=== PATIENT | female | born 1985 | race Caucasian/White ===

== ENCOUNTER 2017-02-15 23:43 | Emergency (ER) | payer MEDICAID, OTHER ==
[~2017-02-15] VITALS: Ht 167.6 cm; Wt 55.8 kg
[2017-02-15] MEDS ORDERED: BIRTH CONTROL PILLS (23:52)
[2017-02-16 00:25] LABS: APPEARANCE,URINE CLEAR; KETONES,URINE 2+ (NEGATIVE); LEUKOCYTE ESTERASE ,URINE 1+ (NEGATIVE); NITRITE,URINE NEGATIVE (NEGATIVE); PH,URINE 6.5 (4.5-8.0); PROTEIN,URINE 1+ (NEGATIVE); UROBILINOGEN,URINE NORMAL MG/DL (0.0-1.0)
[2017-02-16 00:31] LABS: RBC,URINE 40-60 /HPF (0 - 2); WBC,URINE 0-2 /HPF (0 - 2)
[2017-02-16 00:32] LABS: BACTERIA,URINE FEW /HPF; SQUAMOUS EPITHELIAL CELL,UR MANY /LPF (NONE/OCC)
[2017-02-16 01:01] VITALS: BP 115/68
[2017-02-16] MEDS ORDERED: ACETAMINOPHEN-1 EAC1 ORAL (01:02)
[2017-02-16] MEDS ORDERED: IBUPROFEN600 MG ORAL (01:02)
[2017-02-16] MEDS: Norco 10mg/325mg tab ORAL ONE (01:07)
[2017-02-16 01:28] VITALS: BP 115/68
--- NOTE | 2017-02-16 03:49 | Emergency Room Report ---
History of Present Illness General Chief Complaint: Female Urogenital Problems Source: Patient Present Illness HPI Patient presents with complaints of burning in her vaginal region Patient reports that for the past several days she's had increased pain She had taken a Monistat which she felt worsened her burning sensation Patient denies any lower abdominal pain Denies any trauma denies any chest pain or shortness of breath Patient is finishing her menstrual cycle at this time Describes the pain as a sharp stabbing type pain, burning sensation Allergies: Coded Allergies: AMOXICILLIN (Verified Allergy, Unknown, 02/15/17) Patient History Past Medical History: see triage record Pertinent Family History: none Last Menstrual Period: 1 wk ago Reviewed Nursing Documentation: PMH: Agreed, PSxH: Agreed Nursing Documentation-PMH Past Medical History: No Stated History Review of Systems All Other Systems: negative except mentioned in HPI Physical Exam Vital Signs Date Time Temp Pulse Resp B/P (MAP) Pulse Ox O2 Delivery O2 Flow Rate FiO2 02/15/17 23:47 98.1 8 16 117/74 98 Room Air Sp02 EP Interpretation: reviewed, normal General Appearance: well appearing, no apparent distress Head: normocephalic, atraumatic Eyes: bilateral eye PERRL, bilateral eye EOMI ENT: hearing grossly normal, normal pharynx, TMs + canals normal, uvula midline Neck: full range of motion, supple, no meningismus, no bony tend Respiratory: lungs clear, normal breath sounds, no rhonchi, no respiratory distress, no retraction, no accessory muscle use Cardiovascular #1: normal peripheral pulses, regular rate, rhythm, no edema, no gallop, no JVD, no murmur Gastrointestinal: normal bowel sounds, non tender, soft, no mass, no organomegaly, non-distended, no guarding, no hernia, no pulsatile mass, no rebound Genitourinary: no CVA tenderness, other - Pelvic exam reveals patient is on her menstrual cycle, the os was closed and there is no signs of any foreign body in the cul-de-sac, I did not visualize any obvious large lacerations or active hemorrhage Musculoskeletal: normal inspection Neurologic: oriented x3, responsive, legal billing specialist III-XII nml as tested, motor strength/ tone normal, sensory intact Psychiatric: mood/affect normal Skin: normal color, no rash, warm/dry, palpation normal Lymphatic: normal inspection, no adenopathy Medical Decision Making Diagnostic Impression: Primary Impression: vaginal pain ER Course Patient's description of the discomfort sounds to be in line with possible small laceration or other acute injury Patient does not have any fevers There is no signs of any infectious pathology Unfortunately the patient is on her menstrual cycle making the evaluation of any small lacerations very difficult Patient did do better at this time with acute intervention I do not feel CT imaging will provide further input at this time Patient is instructed for no sexual activity And followup closely with gynecology Labs Test 02/16/17 00:08 Urine Color Pale yellow Urine Appearance Clear Urine pH 6.5 (4.5-8.0) Urine Specific [place] 1.005 (1.005-1.035) Urine Protein 1+ (NEGATIVE) Urine Glucose (UA) Negative (NEGATIVE) Urine Ketones 2+ (NEGATIVE) Urine Occult Blood 3+ (NEGATIVE) Urine Nitrite Negative (NEGATIVE) Urine Bilirubin Negative (NEGATIVE) Urine Urobilinogen Normal MG/DL (0.0-1.0) Urine Leukocyte Esterase 1+ (NEGATIVE) Urine RBC 40-60 /HPF (0 - 2) Urine WBC 0-2 /HPF (0 - 2) Urine Squamous Epithelial Cells Many /LPF (NONE/OCC) Urine Bacteria Few /HPF (NONE) Urine HCG, Qualitative Negative Last Vital Signs Date Time Temp Pulse Resp B/P (MAP) Pulse Ox O2 Delivery O2 Flow Rate FiO2 02/16/17 01:28 91 14 115/68 99 Room Air 02/16/17 01:01 98.1 Status: improved Disposition: HOME, SELF-CARE Condition: Stable Scripts Acetaminophen With Codeine (T#3) (TYLENOL #3 TAB*) Y Tab 1 TAB ORAL Q8H Y for For Pain, #10 TAB Prov: SUSIE LEIGH.OJuan 02/16/17 Ibuprofen* (MOTRIN*) 600 Mg Tablet 600 MG ORAL Q8H Y for For Pain, #20 TAB 0 Refills Prov: SUSIE LEIGH D.O. 02/16/17 Referrals: [facility] (PCP) Patient Instructions: Vaginal Laceration Additional Instructions: Patient is provided with the discharge instructions notified to follow up with primary doctor in the next 2-3 days otherwise return to the er with any worsening symptoms. Please note that this report is being documented using [employer] technology. This can lead to erroneous entry secondary to incorrect interpretation by the dictating instrument. SUSIE LEIGH D.O. Feb 16, 2017 03:48
== END 2017-02-16 01:28 | disposition home or self-care (01) ==
LOC: EMR 23:59
DX: R10.2 Pelvic and perineal pain (principal)
CPT/HCPCS: 81003; 81025; 99283

== ENCOUNTER 2017-07-30 07:23 | Emergency (ER) | payer SELFPAY ==
[~2017-07-30] VITALS: Ht 167.6 cm; Wt 54.4 kg
[~2017-07-30 07:23] MED LIST: ACETAMINOPHEN-1 EAC1 ORAL; BIRTH CONTROL PILLS; IBUPROFEN600 MG ORAL
[2017-07-30 07:30] VITALS: BP 105/66
[2017-07-30] MEDS ORDERED: NKM (07:31)
--- NOTE | 2017-07-30 07:52 | Emergency Room Report ---
History of Present Illness General Chief Complaint: Vomiting Source: Patient Present Illness HPI 31-year-old female presents ED for evaluation of abdominal pain with nausea and vomiting. Started last night after eating popcorn with butter on it. Notes multiple episodes of vomiting since. Pain is cramping, epigastric, 8 out of 10 , nonradiating. Denies fevers or chills. Denies chest pain or shortness of breath. Denies any flank pain. Denies any diarrhea. No other aggravating relieving factors. Denies any other associated symptoms Allergies: Coded Allergies: AMOXICILLIN (Verified Allergy, Unknown, 02/15/17) Patient History Past Medical History: none Past Surgical History: none Pertinent Family History: none Social History: Denies: smoking, alcohol use, drug use Last Menstrual Period: 07/17/17 Now: No Immunizations: UTD Reviewed Nursing Documentation: PMH: Agreed; PSxH: Agreed Nursing Documentation-PMH Past Medical History: No Stated History Review of Systems All Other Systems: negative except mentioned in HPI Physical Exam Vital Signs Date Time Temp Pulse Resp B/P (MAP) Pulse Ox O2 Delivery O2 Flow Rate FiO2 07/30/17 07:28 98.4 113 18 105/66 97 Room Air 98.4 Sp02 EP Interpretation: reviewed, normal General Appearance: no apparent distress, alert, GCS 15, non-toxic Head: normocephalic, atraumatic Eyes: bilateral eye normal inspection, bilateral eye PERRL ENT: hearing grossly normal, normal pharynx, no angioedema, normal voice Neck: full range of motion, supple/symm/no masses Respiratory: chest non-tender, lungs clear, normal breath sounds, speaking full sentences Cardiovascular #1: regular rate, rhythm, no edema Cardiovascular #2: 2+ carotid (R), 2+ carotid (L), 2+ radial (R), 2+ radial (L) , 2+ dorsalis pedis (R), 2+ dorsalis pedis (L) Gastrointestinal: normal bowel sounds, soft, non-distended, no guarding, no rebound, tenderness - epigastric Rectal: deferred Genitourinary: normal inspection, no CVA tenderness Musculoskeletal: back normal, gait/station normal, normal range of motion, non- tender Neurologic: alert, oriented x3, responsive, motor strength/tone normal, sensory intact, speech normal Psychiatric: judgement/insight normal, memory normal, mood/affect normal, no suicidal/homicidal ideation Reflexes: 3+ bicep (R), 3+ bicep (L), 3+ tricep (R), 3+ tricep (L), 3+ knee (R) , 3+ knee (L) Skin: normal color, no rash, warm/dry, well hydrated Lymphatic: no adenopathy Medical Decision Making Diagnostic Impression: Primary Impression: Gastritis Qualified Codes: K29.00 - Acute gastritis without bleeding ER Course Hospital Course 31-year-old F presents to ED with epigastric pain with N/V. differential diagnosis: gastritis, SBO, cholecystits Clinical course Patient placed on stretcher. On ekg monitor tech. After initial history and physical I ordered labs, IV fluids, Zofran and pepcid Labs - noted leukocytosis, no electrolyte abnormalities, LFTs normal, UA unremarkable Abdomen is soft, no guarding or rebound. Suspicion for acute abdomen is low Upon reassessment, patient states pain has improved. findings consistent with gastritis I feel this is a highly complex case requiring extensive working including EKG/ Rhythm strip, Xray/CT/US, Blood/urine lab work, repeat exams while in ED, and administration of strong opiates/narcotics for pain control, admission to hospital or close patient follow up. Diagnosis - gastritis Stable and discharged to home with prescriptions for Zantac, zofran. Followup with PMD. Return to ED if symptoms recur or worsen Labs Test 07/30/17 07:45 07/30/17 08:17 White Blood Count 15.5 K/UL (4.8-10.8) Red Blood Count 4.69 M/UL (4.20-5.40) Hemoglobin 15.0 G/DL (12.0-16.0) Hematocrit 42.0 % (37.0-47.0) Mean Corpuscular Volume 90 FL (80-99) Mean Corpuscular Hemoglobin 31.9 PG (27.0-31.0) Mean Corpuscular Hemoglobin Concent 35.7 G/DL (32.0-36.0) Red Cell Distribution Width 10.1 % (11.6-14.8) Platelet Count 104 K/UL (150-450) Mean Platelet Volume 8.4 FL (6.5-10.1) Neutrophils (%) (Auto) % (45.0-75.0) Lymphocytes (%) (Auto) % (20.0-45.0) Monocytes (%) (Auto) % (1.0-10.0) Eosinophils (%) (Auto) % (0.0-3.0) Basophils (%) (Auto) % (0.0-2.0) Sodium Level 138 MMOL/L (136-145) Potassium Level 4.5 MMOL/L (3.5-5.1) Chloride Level 102 MMOL/L (98-107) Carbon Dioxide Level 26 MMOL/L (21-32) Anion Gap 10 mmol/L (5-15) Blood Urea Nitrogen 11 mg/dL (7-18) Creatinine 0.8 MG/DL (0.55-1.30) Estimat Glomerular Filtration Rate > 60 mL/min (>60) Glucose Level 107 MG/DL (74-106) Calcium Level 8.9 MG/DL (8.5-10.1) Total Bilirubin 1.0 MG/DL (0.2-1.0) Aspartate Amino Transf (AST/SGOT) 37 U/L (15-37) Alanine Aminotransferase (ALT/SGPT) 37 U/L (12-78) Alkaline Phosphatase 73 U/L (46-116) Total Protein 8.4 G/DL (6.4-8.2) Albumin 4.6 G/DL (3.4-5.0) Globulin 3.8 g/dL Albumin/Globulin Ratio 1.2 (1.0-2.7) Lipase 74 U/L (73-393) Urine Color Pale yellow Urine Appearance Clear Urine pH 7 (4.5-8.0) Urine Specific [place] 1.005 (1.005-1.035) Urine Protein Negative (NEGATIVE) Urine Glucose (UA) Negative (NEGATIVE) Urine Ketones 1+ (NEGATIVE) Urine Occult Blood 2+ (NEGATIVE) Urine Nitrite Negative (NEGATIVE) Urine Bilirubin Negative (NEGATIVE) Urine Urobilinogen Normal MG/DL (0.0-1.0) Urine Leukocyte Esterase Negative (NEGATIVE) Urine RBC 2-4 /HPF (0 - 2) Urine WBC 0-2 /HPF (0 - 2) Urine Squamous Epithelial Cells Moderate /LPF (NONE/OCC) Urine Bacteria Few /HPF (NONE) Urine HCG, Qualitative Negative (NEGATIVE) Last Vital Signs Date Time Temp Pulse Resp B/P (MAP) Pulse Ox O2 Delivery O2 Flow Rate FiO2 07/30/17 07:28 98.4 113 18 105/66 97 Room Air 98.4 Status: improved Disposition: HOME, SELF-CARE Condition: Stable Scripts Ranitidine Hcl* (ZANTAC*) 150 Mg Tablet 150 MG ORAL TWICE A DAY, #30 TAB Prov: Antonio Mcdaniel MD 07/30/17 Ondansetron Odt* (ZOFRAN ODT*) 4 Mg Tab.rapdis 4 MG BC EVERY 6 HOURS PRN for Nausea & Vomiting, #30 TAB 0 Refills Prov: Antonio Mcdaniel MD 07/30/17 Antonio Mcdaniel MD July 30, 2017 07:52
[2017-07-30 08:08] LABS: MEAN CORPUSCULAR VOLUME 90 FL (80-99); PLATELET COUNT 104 K/UL (150-450); RED BLOOD COUNT 4.69 M/UL (4.20-5.40); RED CELL DISTRIBUTION WIDTH 10.1 % (11.6-14.8); WHITE BLOOD COUNT 15.5 K/UL (4.8-10.8)
[2017-07-30 08:13] LABS: ANION GAP 10 mmol/L (5-15); BLOOD UREA NITROGEN 11 mg/dL (7-18); CALCIUM 8.9 MG/DL (8.5-10.1); CARBON DIOXIDE 26 MMOL/L (21-32); CHLORIDE 102 MMOL/L (98-107); CREATININE 0.8 MG/DL (0.55-1.30); POTASSIUM 4.5 MMOL/L (3.5-5.1); SODIUM 138 MMOL/L (136-145)
[2017-07-30 08:24] LABS: ALANINE AMINOTRANSFERASE 37 U/L (12-78); ALBUMIN 4.6 G/DL (3.4-5.0); ALBUMIN/GLOBULIN RATIO 1.2 (1.0-2.7); ALKALINE PHOSPHATASE 73 U/L (46-116); ASPARTATE AMINO TRANSFERASE 37 U/L (15-37)
[2017-07-30 08:34] LABS: APPEARANCE,URINE CLEAR; BILIRUBIN, URINE NEGATIVE (NEGATIVE); COLOR,URINE PALE YELLOW; GLUCOSE, URINE (UA) NEGATIVE (NEGATIVE); KETONES,URINE 1+ (NEGATIVE); LEUKOCYTE ESTERASE ,URINE NEGATIVE (NEGATIVE); NITRITE,URINE NEGATIVE (NEGATIVE); PH,URINE 7 (4.5-8.0); PROTEIN,URINE NEGATIVE (NEGATIVE); UROBILINOGEN,URINE NORMAL MG/DL (0.0-1.0)
[2017-07-30] MEDS ORDERED: Lidocaine 2% Visc 15ml soln ORAL ONE (09:00)
[2017-07-30] MEDS ORDERED: Mylanta II UD 30ml ORAL ONE (09:00)
[2017-07-30] MEDS ORDERED: Dicyclomine HCl 10mg/5ml oral soln ORAL ONE (09:00)
[2017-07-30] MEDS ORDERED: ONDANSETRON ODT4 MG BC (09:20)
[2017-07-30] MEDS ORDERED: RANITIDINE HCL150 MG ORAL (09:20)
[2017-07-30 09:38] VITALS: BP 111/71
== END 2017-07-30 09:40 | disposition home or self-care (01) ==
LOC: EMR 07:57
DX: K29.70 Gastritis, unspecified, without bleeding (principal); Z88.0 Allergy status to penicillin
CPT/HCPCS: 36415; 80053; 81003; 81025; 83690; 85007; 85025; 96374; 96375; 99284; J2405; S0028